=== PATIENT | male | born 1980 | race African-American/Black ===

== ENCOUNTER 2025-03-15 10:12 | Inpatient (IN) | payer OTHER ==
[2025-03-15 10:31] VITALS: BMI 24.3
[2025-03-15] MEDS ORDERED: hydrOXYzine PAMOATE 25 MG CAPSULE (FP) PO PRN (10:53)
[2025-03-15] MEDS ORDERED: ACETAMINOPHEN 325 MG TABLET (FP) PO PRN (10:53)
[2025-03-15] MEDS ORDERED: BENZOCAINE/MENTHOL (CHLORASEPTIC ) LOZENGE MM PRN (10:53)
[2025-03-15] MEDS ORDERED: NICOTINE POLACRILEX 2 MG GUM BUC PRN (10:53)
[2025-03-15] MEDS ORDERED: MAG HYDROX/AL HYDROX/SIMETH 30 ML UNIT-DOSE CUP PO PRN (10:53)
[2025-03-15] MEDS ORDERED: LOPERAMIDE HCL 2 MG CAPSULE PO PRN (10:53)
[2025-03-15] MEDS ORDERED: IBUPROFEN 600 MG TABLET (FP) PO PRN (10:53)
[2025-03-15] MEDS ORDERED: MAGNESIUM HYDROX 2400MG/30ML ORAL SUSPENSION 30 ML CUP PO PRN (10:53)
[2025-03-15] MEDS ORDERED: POLYETHYLENE GLYCOL (HEALTHYLAX) 3350 17 GM PACKET PO PRN (10:53)
[2025-03-15] MEDS ORDERED: IBUPROFEN 400 MG TABLET (FP) PO PRN (10:53)
[2025-03-15] MEDS ORDERED: BENZONATATE 200 MG CAPSULE PO PRN (10:53)
[2025-03-15] MEDS ORDERED: NALOXONE (NARCAN) HCL 4 MG/0.1 ML SPRAY NS PRN (10:53)
[2025-03-15] MEDS ORDERED: guaiFENesin 600 MG TABLET.ER (FP) PO PRN (10:53)
[2025-03-15] MEDS: KETOCONAZOLE 2 % SHAMPOO 120 ML BOTTLE TP SCH (13:42)
[2025-03-15] MEDS: TUBERCULIN PPD 5 TU/0.1ML SYRINGE (IN PATIENT USE ONLY) ID ONE (14:29)
[2025-03-15] MEDS: MELATONIN 5 MG TABLETS PO SCH (22:43)
[2025-03-15] MEDS: THIAMINE 100 MG TABLET PO SCH (22:43)
[2025-03-15] MEDS: MIRTAZAPINE 15 MG TABLET (FP) PO SCH (22:43)
[2025-03-16] MEDS: PRENATAL VITAMINS W/ FOLIC ACID TABLET (FP) PO SCH (10:03)
[2025-03-16 11:20] VITALS: BP 121/70; PULSE 82; RESP 18; TEMP 97.6
[2025-03-16 12:32] LABS: MCHC 31.6 g/dl (32.3-36.5); MEAN CELL VOLUME 98.0 fl (79.0-92.2); MEAN PLT VOLUME 11.6 fl (9.4-12.4); RDW 14.2 % (12.1-15.9)
[2025-03-16 12:44] LABS: GLUCOSE,RANDOM 82.0 mg/dL (74-106); TOT PROT 6.4 g/dl (6.4-8.2)
[2025-03-16 12:45] LABS: CO2 28.0 mmol/L (21-32)
[2025-03-16 12:47] LABS: ALK PHOS 44.0 U/L (40-150)
[2025-03-16 12:50] LABS: CREATININE 0.69 mg/dL (0.55-1.3); SGOT/AST 17.0 U/L (5-34); SGPT/ALT 18.0 U/L (0-55)
[2025-03-16 13:37] LABS: HCV DIAGNOSTIC IN-HOUSE W/RFLX NON-REACTIVE (NONREACTIVE)
[2025-03-16 13:38] LABS: SYPHILIS W/ RPR CONF NON-REACTIVE (NONREACTIVE)
== END 2025-03-16 11:23 | disposition left against medical advice (07) | DRG 770 ==
LOC: SUATTDRO 10:12 → YASAS 10:12 → Y3NR 11:28 → Y3W 03-16 10:37
PROVIDERS: ADMIT Family Medicine; ATTEND Psychiatry & Neurology Pain Medicine
PROC: HZ42ZZZ Group Counseling for Substance Abuse Treatment, Cognitive-Behavioral (ICD-10-PCS; principal; 2025-03-15)
DX: F10.20 Alcohol dependence, uncomplicated (principal); F14.20 Cocaine dependence, uncomplicated; F17.210 Nicotine dependence, cigarettes, uncomplicated; F19.282 Other psychoactive substance dependence with psychoactive substance-induced sleep disorder; F41.9 Anxiety disorder, unspecified; M54.32 Sciatica, left side
CPT/HCPCS: 36415; 80053; 80307; 85027; 86780; 86803; 93005; 93010